=== PATIENT | male | born 1970 | race Caucasian/White ===

== ENCOUNTER 2017-02-06 18:39 | Day surgery (SDC) | payer BC ==
--- NOTE | ~2017-02-06 | EGD ---
EGD REPORT [facility] [address] [address] NAME: DRAGAN BURNS : [birth year] STATUS : REG ER PAT#: [id number] AGE: 46 ADM/REG DATE : 02/06/17 MR#: [id number] REPORT SERV DATE: 02/06/17 DICTATED BY: DATE: REPORT STATUS : Draft TRANSCRIBED BY: [employer] DATE: 02/06/17 [facility] Patient Name: Dragan Burns Date of : 1970 Attending MD: KARLEY JAVIER MD Procedure Date No Time: 02/06/2017 Procedure: Upper GI endoscopy Indications: Dysphagia Medicines: Monitored Anesthesia Care Complications: No immediate complications. Procedure: After obtaining informed consent, the endoscope was passed under direct vision. Throughout the procedure, the patient's blood pressure, pulse, and oxygen saturations were monitored continuously. The GIF H190 [id number] was introduced through the mouth, and advanced to the esophagus down to the cardia. The upper GI endoscopy was accomplished without difficulty. The patient tolerated the procedure well. The procedure was aborted due to stenosis. The upper GI endoscopy was accomplished without difficulty. The patient tolerated the procedure well. The procedure was aborted due to stenosis. Findings: LA Grade D (one or more mucosal breaks involving at least 75% of esophageal circumference) esophagitis was found in the lower third of the esophagus. A moderate stenosis measuring less than one cm (in length) x 6 mm (inner diameter) was found 35 cm from the incisors and was non-traversed. Biopsies were taken with a cold forceps for histology. There is no endoscopic evidence of foreign body in the entire esophagus. Impression: - The procedure was aborted due to stenosis. - The procedure was aborted due to stenosis. - LA Grade D reflux esophagitis. - Esophageal stricture. Biopsied. Recommendation: - The patient will be observed post-procedure, until all discharge criteria are met. - Discharge patient to home. - Use Prevacid (lansoprazole) 30 mg PO BID opened in applejuice. - Full liquid diet. - Await pathology results. - Repeat the upper endoscopy with dilation under EGD REPORT [address] [address] NAME: DRAGAN BURNS : [birth year] STATUS : REG ER PAT#: [id number] AGE: 46 ADM/REG DATE : 02/06/17 MR#: [id number] REPORT SERV DATE: 02/06/17 DICTATED BY: DATE: REPORT STATUS : Draft TRANSCRIBED BY: Updater DATE: 02/06/17 fluoroscopy in 1 week for retreatment. Procedure Code(s): --- Professional --- 24516, Esophagoscopy, flexible, transoral; with biopsy, single or multiple Diagnosis Code(s): --- Professional --- Z53.8, Procedure and treatment not carried out for other reasons K21.0, Gastro-esophageal reflux disease with esophagitis K22.2, Esophageal obstruction R13.10, Dysphagia, unspecified CPT copyright 2013 [employer]. All rights reserved. The codes documented in this report are preliminary and upon bridge tender review may be revised to meet current compliance requirements. KARLEY JAVIER MD 02/06/2017 11:31 PM This report has been signed electronically. Number of Addenda: 0 Note Initiated On: 02/06/2017 11:02 PM Scope Withdrawal Time 0 hours 0 minutes 0 seconds [id number] [place] [address]
[2017-02-06 22:49] LABS: BASOPHILS 0.3 %; BASOPHILS ABSOLUTE 0.03 10/3/uL (0.0-0.16); ER CBC TAT 0 Hrs 07 Mins; HEMATOCRIT 47.9 % (40.0-51.0); HEMOGLOBIN 17.6 g/dL (13.6-17.8); IMMATURE GRANULOCYTES 0.5 %; IMMATURE GRANULOCYTES ABSOLUTE 0.05 10/3/uL (0.0-0.11); LYMPHOCYTES 38.9 %; LYMPHOCYTES ABSOLUTE 3.82 10/3/uL (0.67-4.30); MANUAL DIFF NO %; MEAN CORPUS HGB CONC 36.7 g/dL (32.0-36.0); MEAN CORPUSCULAR HEMOGLOB 32.1 pg (26.0-34.0); MEAN CORPUSCULAR VOLUME 87.2 fL (80-100); MEAN PLATELET VOLUME 10.5 fL (9.2-13.0); MONOCYTES 8.6 %; MONOCYTES ABSOLUTE 0.84 10/3/uL (0.21-1.20); NEUTROPHILS 49.7 %; NEUTROPHILS ABSOLUTE 4.87 10/3/uL (2.02-8.40); PLATELET COUNT 192 10/3/uL (150-400); RBC DISTRIBUTION WIDTH 12.9 % (12.0-16.0); RED CELL COUNT 5.49 10/6/uL (4.7-6.1); WHITE BLOOD CELLS 9.8 10/3/uL (4.5-10.5)
[2017-02-06 23:01] LABS: BUN (BLOOD UREA NITROGEN) 13 MG/DL (6-23); CHLORIDE, SERUM 105 MMOL/L (96-112); CO2 (CARBON DIOXIDE) 27 MMOL/L (24-34); GFR AFRICAN AMERICAN 104 ML/MIN (>=60); GFR NON AFRICAN AMERICAN 90 ML/MIN (>=60); GLUCOSE, SERUM 88 MG/DL (60-99); POTASSIUM, SERUM 3.6 MMOL/L (3.5-5.3); SODIUM, SERUM 141 MMOL/L (135-148)
[2017-02-10] MEDS ORDERED: PREV30 PO (13:40)
== END 2017-02-06 23:06 | disposition home or self-care (01) ==
LOC: GI 18:39 → SDC 18:40
PROVIDERS: Emergency Medicine; Internal Medicine Gastroenterology
PROC: 0DB58ZX Excision of Esophagus, Via Natural or Artificial Opening Endoscopic, Diagnostic (ICD-10-PCS; principal; 2017-02-06 23:20)
DX: K21.0 Gastro-esophageal reflux disease with esophagitis (principal); T18.2XXA Foreign body in stomach, initial encounter; Z53.8 Procedure and treatment not carried out for other reasons
CPT/HCPCS: 80048; 85025; 88305; 93005; 99284; J0330

== ENCOUNTER 2017-02-16 10:30 | Day surgery (SDC) | payer BC ==
--- NOTE | ~2017-02-16 | EGD ---
EGD REPORT [facility] [address] [address] NAME: DRAGAN BURNS : [birth year] STATUS : REG [facility]#: [id number] AGE: 46 ADM/REG DATE : 02/16/17 MR#: [id number] REPORT SERV DATE: 02/16/17 DICTATED BY: DATE: REPORT STATUS : Draft TRANSCRIBED BY: [employer] DATE: 02/16/17 [facility]oscopy Center Patient Name: Dragan Burns Date of : 1970 Attending MD: KARLEY JAVIER MD Procedure Date No Time: 02/16/2017 Procedure: Upper GI endoscopy Indications: Stenosis of the esophagus Medicines: Monitored Anesthesia Care Complications: No immediate complications. Procedure: Pre-Anesthesia Assessment: - ASA Grade Assessment: II - A patient with mild systemic disease. After obtaining informed consent, the endoscope was passed under direct vision. Throughout the procedure, the patient's blood pressure, pulse, and oxygen saturations were monitored continuously. The GIF H190 [id number] was introduced through the mouth, and advanced to the second part of duodenum. The upper GI endoscopy was accomplished without difficulty. The patient tolerated the procedure well. Findings: A benign-appearing, intrinsic moderate stenosis measuring 2 cm (in length) was found at the gastroesophageal junction and was traversed after dilation. Biopsies were taken with a cold forceps for histology. A guidewire was placed under fluoroscopic guidance and the scope was withdrawn. Dilation was performed with a Savary dilator with no resistance at 36 Fr, mild resistance at 38 Fr and no resistance at 42 Fr. LA Grade B (one or more mucosal breaks greater than 5 mm, not extending between the tops of two mucosal folds) esophagitis was found at the gastroesophageal junction. The esophagus and gastroesophageal junction were examined with white light and narrow band imaging (NBI) from a forward view and retroflexed position. 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 No visible abnormalities were present. The maximum longitudinal extent of these esophageal mucosal changes was 2 cm in length. Biopsies were taken with a cold forceps for histology. A small hiatus hernia was present. The entire examined stomach was normal. There is no endoscopic evidence of mucosal abnormalities, ulceration or varices in the entire examined stomach. EGD REPORT [place] [id number] [facility] [place]. [address] NAME: DRAGAN BURNS : [birth year] STATUS : REG [facility]#: [id number] AGE: 46 ADM/REG DATE : 02/16/17 MR#: [id number] REPORT SERV DATE: 02/16/17 DICTATED BY: DATE: REPORT STATUS : Draft TRANSCRIBED BY: [employer] DATE: 02/16/17 The examined duodenum was normal. There is no endoscopic evidence of inflammation, mucosal abnormalities or ulceration in the entire examined duodenum. The cardia and gastric fundus were normal on retroflexion. Impression: - Benign-appearing esophageal stricture. Biopsied. Dilated. - LA Grade B reflux esophagitis. 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 Biopsied. - Hiatus hernia. - Normal stomach. - Normal examined duodenum. Recommendation: - Patient has a contact number available for emergencies. The signs and symptoms of potential delayed complications were discussed with the patient. Return to normal activities tomorrow. Written discharge instructions were provided to the patient. - Soft diet. - Discharge patient to home. - Continue present medications. - Await pathology results. - Observe patient's clinical course. - Return to my office in 2 months. Procedure Code(s): --- Professional --- 19875, Esophagogastroduodenoscopy, flexible, transoral; with insertion of guide wire followed by passage of dilator(s) through esophagus over guide wire 13941, Esophagogastroduodenoscopy, flexible, transoral; with biopsy, single or multiple 90731, Intraluminal dilation of strictures and/or obstructions (eg, esophagus), radiological supervision and interpretation Diagnosis Code(s): --- Professional --- K22.2, Esophageal obstruction K21.0, Gastro-esophageal reflux disease with esophagitis K22.9, Disease of esophagus, unspecified K44.9, Diaphragmatic hernia without obstruction or gangrene CPT copyright 2013 [employer]. All rights reserved. The codes documented in this report are preliminary and upon hand meat salter review may EGD REPORT [facility] [address] [address] NAME: DRAGAN BURNS : [birth year] STATUS : REG [facility] PAT#: [id number] AGE: 46 ADM/REG DATE : 02/16/17 MR#: [id number] REPORT SERV DATE: 02/16/17 DICTATED BY: DATE: REPORT STATUS : Draft TRANSCRIBED BY: [facility] DATE: 02/16/17 be revised to meet current compliance requirements. KARLEY JAVIER MD 02/16/2017 1:07 PM This report has been signed electronically. Number of Addenda: 0 Note Initiated On: 02/16/2017 11:20 AM Scope Withdrawal Time 0 hours 0 minutes 0 seconds [address] [address]
[~2017-02-16 10:30] MED LIST: PREV30 PO
== END 2017-02-16 23:59 | disposition home or self-care (01) ==
LOC: DMU 10:30
PROVIDERS: Internal Medicine Gastroenterology
PROC: 0DB58ZX Excision of Esophagus, Via Natural or Artificial Opening Endoscopic, Diagnostic (ICD-10-PCS; 2017-02-16)
PROC: 0D747ZZ Dilation of Esophagogastric Junction, Via Natural or Artificial Opening (ICD-10-PCS; principal; 2017-02-16 13:30)
PROC: 0DB48ZX Excision of Esophagogastric Junction, Via Natural or Artificial Opening Endoscopic, Diagnostic (ICD-10-PCS; 2017-02-16 13:30)
DX: K21.0 Gastro-esophageal reflux disease with esophagitis (principal); K22.70 Barrett's esophagus without dysplasia; K22.2 Esophageal obstruction; K22.9 Disease of esophagus, unspecified; K44.9 Diaphragmatic hernia without obstruction or gangrene; R13.10 Dysphagia, unspecified; M17.0 Bilateral primary osteoarthritis of knee; G47.33 Obstructive sleep apnea (adult) (pediatric); M19.90 Unspecified osteoarthritis, unspecified site; E78.00 Pure hypercholesterolemia, unspecified; J45.909 Unspecified asthma, uncomplicated; Z87.891 Personal history of nicotine dependence; Z79.899 Other long term (current) drug therapy
CPT/HCPCS: 76000; 88305